=== PATIENT | male | born 1955 | race Caucasian/White ===

== ENCOUNTER 2022-04-18 07:11 | Emergency (ER) | payer OTHER ==
[2022-04-18 07:27] VITALS: TEMP 98.6; BMI 23.0
[2022-04-18] MEDS ORDERED: methaDONE HCL 10 MG TABLET (FOR DETOX USE ONLY) PO ONE (07:29)
[2022-04-18] MEDS ORDERED: methaDONE HCL 10 MG TABLET ONE (07:42)
[2022-04-18 08:16] LABS: HEMATOCRIT 41.4 % (35.4-49); HEMOGLOBIN 14.7 G/dL (11.7-16.9); MCH 29.2 pg (25.7-33.7); MCHC 35.5 g/dl (32.0-35.9); MEAN CELL VOLUME 82.1 fl (80-96); MEAN PLT VOLUME 6.6 fl (7.5-11.1); PLATELET COUNT 226.3 10^3/uL (134-434); RBC 5.04 10^6/uL (4.00-5.60); RDW 14.6 % (11.9-15.9); WHITE BLOOD COUNT 9.5 10^3/uL (4.0-10.8)
[2022-04-18 08:22] LABS: ALBUMIN 3.6 g/dl (3.4-5.0); BILIRUBIN,TOTAL 0.9 mg/dl (0.2-1); CALCIUM 9.4 mg/dl (8.5-10); CREATININE 0.8 mg/dl (0.55-1.3)
[2022-04-18 08:24] LABS: PLATELET ESTIMATE ADEQUATE
[2022-04-18 08:52] VITALS: BP 152/97; PULSE 87; RESP 18
== END 2022-04-18 09:35 | disposition home or self-care (01) ==
LOC: FER 07:11
DX: F11.23 Opioid dependence with withdrawal (principal)
CPT/HCPCS: 36415; 80053; 85027; 99283-25